=== PATIENT | male | born 1960 | race Caucasian/White ===

== ENCOUNTER → 2021-10-30 09:54 | Outpatient (CLI) | payer OTHER, SELFPAY ==
--- NOTE | ~2021-10-30 | XR_ITS ---
EXAMINATION:XR_[id number]_CR DATE: 10/30/2021 10:11 INDICATION: Left shoulder pain TECHNIQUE: AP, lateral, and odontoid views of the cervical spine are provided. COMPARISON: None FINDINGS: There is 1 mm of retrolisthesis of C3 on C4. The odontoid is intact. No fracture is identif ied. The vertebral body heights are maintained. There is mild to moderate loss of intervertebral disc space height from C2-3 through C5-6. Small degenerative osteophytes project from the anterior endpla jaxon of multiple vertebral bodies. There is mild multilevel facet and uncovertebral joint osteoarthrit is. Prevertebral soft tissues are normal. Calcified right paratracheal lymph nodes are consistent wit h old granulomatous disease. IMPRESSION: 1. Mild to moderate cervical spondylosis. Reviewed, dictated and finalized at location B.
--- NOTE | ~2021-10-30 | XR_ITS ---
XR shoulder LT min 2V 10/30/2021 10:10 Indication: Left shoulder pain Procedure: 4 views left shoulder Comparison: No prior studies Findings: Severe glenohumeral joint osteoarthritis. No acute fracture or traumatic malalignment. Visu alized lung parenchyma is unremarkable. No soft tissue abnormality. No foreign bodies. Impression: 1: Severe left glenohumeral joint osteoarthritis. Reviewed, dictated and finalized at location A. Impression: 1: Severe left glenohumeral joint osteoarthritis.
== END ==
PROVIDERS: PCP Internal Medicine; Visit Provider Internal Medicine
DX: M47.892 Other spondylosis, cervical region (principal); M19.012 Primary osteoarthritis, left shoulder
CPT/HCPCS: 72040; 73030

== ENCOUNTER 2021-12-20 06:36 | Outpatient (CLI) | payer OTHER, SELFPAY ==
--- NOTE | ~2021-12-20 | CT_ITS ---
EXAMINATION: CT shoulder LT wo con DATE: 12/20/2021 06:54 INDICATION: Left shoulder osteoarthritis for preoperative planning. TECHNIQUE: High resolution computed tomography (CT) of the left shoulder was performed without intrav enous contrast. Additional sagittal and coronal reconstructions were performed. The dose-length produ ct was 510.48 mGy-cm. COMPARISON: Radiographs dated 10/30/2021 FINDINGS: Normal alignment. No fracture. Advanced left glenohumeral osteoarthritis with remodeling and loss of bone stock along the medial and posteromedial aspect of the humeral head. Prominent subarticular cyst ic changes at the superomedial aspect of the humeral head. There are also large marginal osteophytes primarily along the inferomedial aspect of the humeral head. There is also remodeling of the glenoid with loss of bone stock at the posterior glenoid resulting in approximately 15 degrees retroversion. Small marginal osteophytes along the glenoid. There are also multiple small loose osteochondral roseline s at the superior and posterior recess of the joint space. No significant glenohumeral joint effusion . Mild acromioclavicular osteoarthritis. No asymmetric muscular atrophy of the shoulder girdle. No pa thologically enlarged lymphadenopathy at the left axilla, left hilum or visualized left side of the m ediastinum. Calcified infrahilar lymph nodes consistent with old granulomatous disease. Visualized po rtions of the left lung are clear. IMPRESSION: 1. Advanced left glenohumeral osteoarthritis. Reviewed, dictated and finalized at location A.
== END 2021-12-20 06:37 | disposition home or self-care (01) ==
LOC: ANHIMG 06:40
PROVIDERS: PCP Internal Medicine; Visit Provider Internal Medicine
DX: M19.012 Primary osteoarthritis, left shoulder (principal)
CPT/HCPCS: 73200

== ENCOUNTER 2022-01-25 12:00 | Outpatient (CLI) | payer OTHER, SELFPAY ==
--- NOTE | 2022-01-25 12:38 | ECG_ITS ---
Measurements Intervals Burns Rate: 75 P: 1 MT: 188 QRS: 13 QRSD: 118 T: 44 QT: 372 QTc: 418 Interpretive Statements SINUS RHYTHM NORMAL ELECTROCARDIOGRAM NO PREVIOUS ECG AVAILABLE FOR COMPARISON Electronically Signed On 01-25-2022 14:11:55 CDT by Trenton Viveros M.D.
[2022-01-25 12:56] LABS: Basophils Percent Auto 0.8 % (0.2-1.2); Eosinophils Absolute Auto 0.1 K/mm3 (0-0.3); Eosinophils Percent Auto 2.6 % (0-4.4); Hematocrit 41.2 % (42.0-52.0); Immature Granulocyte Absolute 0.01 K/mm3 (0.00-0.031); Immature Granulocyte Percent A 0.2 % (0-0.5); Lymphocytes Absolute Auto 1.08 K/mm3 (0.9-3.2); Lymphocytes Percent Auto 21.7 % (18.3-44.2); Mean Corpuscular Hemoglobin 30.7 pg (26-34); Mean Corpuscular Volume 90.4 fl (80-100); Mean Platelet Volume 11.2 fl (7.4-10.4); Monocytes Absolute Auto 0.4 K/mm3 (0.1-0.6); Monocytes Percent Auto 8.9 % (2.6-8.5); Neutrophils Absolute Auto 3.3 K/mm3 (1.3-6.7); Neutrophils Percent Auto 65.8 % (45.5-73.1); Platelet Count Result 186 k/mm3 (150-375); Red Blood Count 4.56 M/mm3 (4.6-6.20); Red Cell Distribution Width 13.1 % (11.5-14.5)
== END 2022-01-25 12:01 | disposition home or self-care (01) ==
LOC: ANHSURGERY 12:06
PROVIDERS: PCP Internal Medicine; Visit Provider Orthopaedic Surgery
DX: M19.012 Primary osteoarthritis, left shoulder (principal); Z01.818 Encounter for other preprocedural examination
CPT/HCPCS: 36415; 85025; 87081; 93005

== ENCOUNTER 2022-02-21 00:53 | Day surgery (SDC) | payer OTHER, SELFPAY ==
--- NOTE | 2022-01-25 11:38 | PC.NURSE ---
PRE-OP INSTRUCTIONS, PLEASE READ CAREFULLY Report to the Outpatient Waiting Room, entrance under the green pavilion located off [facility], at time _0600_ on date _02/21/22_. Planned Procedure Time: _0730_. PACK A SMALL OVERNIGHT BAG AND LEAVE IN THE CAR Time changes happen often and if your time is changed the preop area will call you the afternoon before. - You and your visitor will be asked to self-screen and do not enter if you have any COVID symptoms. - We encourage only one visitor and NO visitors under age 16 are allowed at this time. Your visitor will receive communication by the phone number that is given day of service. - The patient visitor is requested to social distance or may leave the building when not with patient due to restrictions. - A mask is required within the hospital. -VISITING HOURS 8AM-8PM Patients may have clear liquids (water, carbonated beverages, clear teas, apple juice) until 3 hours prior to surgery (0430 AM) with a maximum of 20 ounces. - No food from midnight until time of surgery Take the following medications with a SIP of water the morning of surgery: _LEVOTHYROXINE_ Medications to discontinue per DR. KELLEY - _ALEVE, IBUPROFEN 7 DAYS PRIOR TO SURGERY, Date to take last dose 02/13/22_ Medications to discontinue per ANESTHESIA - _MULTIVITAMIN 3 DAYS PRIOR TO SURGERY, Date to take last dose 02/17/22_ Please no make-up, nail english, hairspray, perfume, deodorant, or body powder the day of surgery. No jewelry (including any body piercings) or valuables the day of surgery, leave them at home. Please take a shower or bath the night before, or the morning of, surgery with an antibacterial soap. Wear comfortable, loose fitting clothing. Children are encouraged to wear pajamas. - Jewelry must be removed prior to entering the operating room. Rings and piercings that are not removed may be cut off. - The hospital will not accept responsibility for valuables. - Please leave all valuables, including medications, at home the day of surgery. If you are going home after surgery, a licensed class c truck driver must drive you home. - NO public transportation without another adult. - We recommend that an adult stay with you for 24 hours following discharge. - We also recommend that you do not drive, make important decision, drink alcoholic beverages, or take any drugs that were not prescribed by your health care provider for at least 24 hours after your discharge time. Follow any additional instructions given to you from your surgeon. If you or anyone in your household have experienced Covid symptoms in the past week, please notify your surgeon or the nurse liaison at the phone number below for possible testing. Instructions given to ____PT and asked if any additional questions and then verbalized understanding. Patient advised to call surgeon office or pre surgery nurse liaison [phone] if any additional questions.
[2022-01-25 12:21] VITALS: BP 136/82; PULSE 72; RESP 20; TEMP 36.8; O2SAT 98; BMI 26.5
--- NOTE | 2022-02-20 13:13 | WPDANESEPPF ---
Anes - Initial Pre Proc Eval Procedure: Operation Date: 02/21/22 07:30 Proposed Procedures p Left Reverse Total Shoulder Arthroplasty - Emerson Jc MD Date/Time: 02/20/22 13:13 Surgeon: Emerson Jc MD Pre Op Diagnosis: primary oa left shoulder Patient Data Age: 61 Gender: M Height: 1.85 m Weight: 91.2 kg Last Vital Signs Temp 36.8 C 01/25/22 12:21 Pulse 72 01/25/22 12:21 Resp 20 01/25/22 12:21 BP 136/82 01/25/22 12:21 Pulse Ox 98 01/25/22 12:21 O2 Del Method Room Air 01/25/22 12:21 Allergies Allergy/AdvReac Type Severity Reaction Status Date / Time animal dander Allergy Unknown THROAT Verified 01/25/22 12:15 SWELLING, HIVES, EYE IRRITATION mold Allergy Unknown DIFFICULTY Verified 01/25/22 12:15 BREATHING, ITCHY EYES Penicillins Allergy Unknown Unknown- Verified 01/25/22 12:15 A CHILD Home Medications Medication Instructions Recorded Confirmed Type levothyroxine 50 mcg tablet 50 mcg PO DAILY #90 tabs 08/27/21 01/25/22 Rx (Synthroid) ibuprofen 100 mg tablet 100 mg TID PRN Pain 01/25/22 01/25/22 History multivit,calc,mins-folic 240 1 tablet PO DAILY 01/25/22 01/25/22 History mcg-vit K1 30 mcg-lycopene 300 mcg tablet (One-A-Day Men's Complete) naproxen sodium 220 mg capsule 220 mg PO BID PRN Pain 01/25/22 01/25/22 History (Aleve) Patient hx anesthesia problems: none Family hx anesthesia problems: none Results Review: All pre-operative results and documents have been reviewed as part of the pre-operative evaluation. [facility] Past Medical History Medical History Gastro-esophageal reflux disease without esophagitis Hyperlipidemia Hypothyroidism Surgical History Surgical History History of knee surgery 1980 1990 History of shoulder surgery 2005 Family History Family History Sibling Patient's sister is in good health Family history of diabetes mellitus in first degree relative Social History Social History Smoking status: Never smoker Tobacco type: cigarettes Second hand tobacco smoke exposure: No Alcohol intake: current Alcohol use details: STATES VERY VERY RARELY - NONE IN PAST 1 1/2YR Substance use: never Substance use type: does not use Lack of Transportation: No Lack of Food: Never True Current Housing: I Have Housing Concerned About Future Housing: No Difficulty Paying Gas/Electric Bills: No Difficulty Paying for Meds: No Currently Unemployed: No Education: Bachelor's Degree Difficulty w/ Childcare or Family Care: No Living arrangements: with family Spiritual care concerns: No Anes - Eval Final PreProcedure Day of Procedure 02/20/22 13:13 Patient weight: overweight Heart: regular rate and rhythm Lungs: clear to auscultation Airway: Mallampati scale class II Neurological: alert and oriented Last oral intake: >/= 8 hours ASA classification: II Emergent: no Anesthetic plan: proceed Anesthesia type and monitoring: general ETT and standard monitoring Results Review: All pre-operative results and documents have been reviewed as part of the pre-operative evaluation. Informed Consent: The patient's anesthetic plan and its attendant risks and benefits were discussed with the patient/family/POA. Questions were solicited and answers provided to the satisfaction of the patient/family/POA.
[2022-02-21] VITALS (13 sets, daily range): BP systolic 91–128; BP diastolic 52–76; PULSE 67–87; RESP 12–18; TEMP 36.3–36.6; O2SAT 90–100
[2022-02-21] MEDS: ACETAMINOPHEN 500 MG TABLET 1000 MG PO (06:30)
--- NOTE | 2022-02-21 06:46 | WPDANESPNB ---
Anes - Peripheral Nerve Block Date/Time: 02/21/22 06:46 I have discussed with the patient/family/POA the placement of a peripheral nerve block for post-operative pain management, including associated risks, benefits, complications, and side effects. Alternative methods of post-operative analgesia were detailed. Questions were solicited and answers provided to the satisfaction of the patient/family/POA. Time-Out: A pre-procedural Time-Out was completed immediately before starting the procedure and confirmed: Patient Identification, Site, Procedure, Patient Position and the Availability of Requisite Equipment. Clinical Indications: Acute post-operative pain management requested by the operative surgeon. Nerve Block Insertion Note Anes-nerve block: interscalene left Patient position: supine Skin prep: chlorhexidine Needle: 22 gauge, stimulating, insulated echogenic needle. Needle length: 50 mm Technique: ultrasound Injectate: bupivacaine 0.5% with epi 5 mcg/ml (30cc- no epi) Observations: tolerated well Complications: none Procedure start time:: 726 Procedure end time:: 729
[2022-02-21] MEDS: LACTATED RINGERS 1,000 ML 30 ML IV CONT ×2 (07:00→10:30)
[2022-02-21] MEDS: TRANEXAMIC ACID 1,000MG/ISO100 1,000 MG/100 ML BAG 200 MG IVPB (07:16)
--- NOTE | 2022-02-21 07:19 | WPDHPUPDATE1 ---
History and Physical Update Update Date/Time: 02/21/22 07:19 History and Physical has been reviewed, including an updated exam of the patient. There are NO changes in the patient's condition. Risks, benefits, and alternatives have been discussed and questions answered. Patient agrees to proceed with procedure.
[2022-02-21] MEDS: ceFAZolin 2 GM/D5W 50 ML 2 GM/50 ML BAG IVPB ×3 (07:30→23:21)
[2022-02-21] MEDS: VANCOMYCIN HCL 1,000 MG VIAL 1000 MG TOPICAL (10:09)
--- NOTE | 2022-02-21 10:28 | W.PM.PROC2 ---
Procedure Note - Detailed Date of Procedure 02/21/22 Pre-op Diagnosis primary oa left shoulder Post-op Diagnosis Same Procedure Performed Reverse total shoulder arthroplasty, left. Surgeon Emerson Jc MD Pharmaceutical Botanist Amna Patel PA-C Anesthesia General and Regional (Interscalene block.) Findings Marked preoperative stiffness. Severe djd with humeral head collapse. Extensive osteophytes and multiple loose bodies. Posterior subluxation and 20 degrees retroversion. 3D preoperative analysis with the [employer] software. Correction with 15 degree augmented baseplate; with augment placed at 2 o'clock. Good bone quality. Due to the anatomic head deformity, a slightly varus neck cut was required to achieve 25 degrees of retroversion while avoiding the cuff insertion. Description of Procedure The patient was given an interscalene block in the preoperative area. Preoperative antibiotics were given. The patient was transferred to the operating room and a general anesthetic was administered. The beach chair position was used at 45 degrees. All bony prominences were padded. The head was carefully stabilized on the [employer] head scorer. A sterile prep and drape was performed in the usual manner with ChloraPrep. A longitudinal incision was created at the anterior shoulder just lateral to the deltopectoral interval. Hydrogen peroxide was placed on the incision and then rinsed after one minute. Careful dissection was performed to expose the interval and protect the cephalic vein. The vein was retracted medially. The upper border of the pectoralis was released. Anterior circumflex vessel branches were suture ligated. The biceps was tenodesed. A subscapularis tenotomy was performed. The inferior capsule was released, exposing the humeral head. Osteophytes were removed. Care was taken to stay on bone to protect the axillary nerve. The anatomic head cut was taken with the oscillating saw. The guide pin was placed, central drilling performed, and the broach trial inserted. The neck anteversion and inclination were carefully assessed. The cut protector was placed, and attention was turned to the glenoid. Retractors were placed. Releases were carried out for exposure. The subscapularis was mobilized, the inferior capsule and long head of triceps released, and the superior and middle glenohumeral ligaments released as well. Labral tissue was resected as needed. The sizing template was used to assess the baseplate position low on the glenoid. A guide pin was placed. Minimal reaming was used to accomplish a flat surface without violating the subchondral bone. Version was corrected according to preoperative templating. The boss was drilled, and the real component was impacted into position. Supplemental locking screws were placed centrally, superiorly, and inferiorly. The glenosphere was impacted into the taper. The proximal humerus was reamed for the inset component. The humeral components were trialed. The real humeral stem, tray, and insert were impacted into position. The shoulder was copiously irrigated periodically with pulsatile lavage. The shoulder was reduced and stability confirmed. 1 gram of Vancomycin powder was placed in the joint. The biceps tenodesis was incorporated with the pectoralis tendon repair. The deltopectoral space was reapproximated with number 1 Vicryl. The remaining tissue was closed with 0 Quill and 2-0 Quill running suture and steri-strips. A sterile silver occlusive dressing and shoulder immobilizer were placed. The patient was transferred to the recovery room. Physician retail assistant manager, Amna Patel PA-C, required for surgery; including patient positioning, draping, tissue retraction, maintaining instrument position, wound closure, and dressing placement. Implants Shoulder Innovations reverse TSA size 0 stem. +3 polyethylene insert. 15 degree augmented baseplate. 36+6 mm glenosphere. Estimated Blood Loss 150 Drains No Pathology None sent Complicatio
--- NOTE | 2022-02-21 12:10 | ADMGEN ---
This patient, Leo Dobbins, was admitted to Medical Room 257-01. Patient/family oriented to hospital policies and general routines including ID bracelet, bed and alarms, visiting hours, pain management, procedures, bathroom and other care routines, personal items, smoking policy, room service/diet, and visiting hours. Information on how to activate the Rapid Response Team has been discussed. Patient/Family are encouraged to report perceived risks to care and to ask questions if they do not understand what they are told or what they should do.
[2022-02-21] MEDS: SODIUM CHLORIDE 0.9% IV 1,000 ML 125 ML IV CONT (12:28)
[2022-02-21] MEDS: ONDANSETRON INJ 4 MG/2 ML VIAL IV PUSH (13:51)
[2022-02-21] MEDS: MELOXICAM 7.5 MG TABLET PO (17:11)
[2022-02-21] MEDS: SENNA/DOCUSATE SODIUM TABLET 2 TAB PO (17:11)
[2022-02-21] MEDS: ASPIRIN 81 MG ENTERIC TABLET PO (17:12)
[2022-02-21] MEDS: FAMOTIDINE 20 MG TABLET PO (19:57)
[2022-02-22 01:34] VITALS: BP 110/71; PULSE 100; RESP 16; TEMP 36.8; O2SAT 95
[2022-02-22] MEDS: oxyCODONE HCL (*CRX) 5 MG TAB IR PO ×2 (04:30→10:13)
[2022-02-22] MEDS: LEVOTHYROXINE SODIUM 50 MCG TABLET PO (06:01)
[2022-02-22] MEDS: ceFAZolin 2 GM/D5W 50 ML 2 GM/50 ML BAG IVPB (06:01)
[2022-02-22] MEDS: traMADol HCL (*CRX) 50 MG TABLET PO (06:06)
[2022-02-22 06:28] VITALS: BP 114/73; PULSE 86; RESP 16; TEMP 36.6; O2SAT 100
[2022-02-22 06:29] LABS: Basophils Percent Auto 0.2 % (0.2-1.2); Eosinophils Percent Auto 0.3 % (0-4.4); Hematocrit 36.3 % (42.0-52.0); Hemoglobin 12.3 g/dL (14.0-18.0); Immature Granulocyte Absolute 0.04 K/mm3 (0.00-0.031); Immature Granulocyte Percent A 0.4 % (0-0.5); Lymphocytes Absolute Auto 1.06 K/mm3 (0.9-3.2); Lymphocytes Percent Auto 11.1 % (18.3-44.2); Mean Corpuscular HGB Conc 33.9 g/dl (32-36); Mean Corpuscular Volume 88.5 fl (80-100); Mean Platelet Volume 11.3 fl (7.4-10.4); Monocytes Absolute Auto 1.2 K/mm3 (0.1-0.6); Monocytes Percent Auto 12.2 % (2.6-8.5); Neutrophils Absolute Auto 7.3 K/mm3 (1.3-6.7); Neutrophils Percent Auto 75.8 % (45.5-73.1); Platelet Count Result 169 k/mm3 (150-375); Red Cell Distribution Width 13.2 % (11.5-14.5); White Blood Count 9.6 K/mm3 (4.5-10.0)
[2022-02-22 06:35] LABS: Anion Gap 6 mmol/L (8-16); Blood Urea Nitrogen 17 mg/dL (9-20); Calcium 8.4 mg/dL (8.4-10.2); Carbon Dioxide 28 mmol/L (22-30); Chloride 100 mmol/L (98-107); Estimated CRCL calculation 77 ml/min; Estimated Glomerular Filt Rate > 60; Glucose 118 mg/dL (65-110); Potassium 4.1 mmol/L (3.4-5.0); Sodium 134 mmol/L (137-145)
--- NOTE | 2022-02-22 08:40 | PM.DS ---
DS: Admitting Diagnosis Discharge Date 02/22/22 Admitting Diagnosis Severe glenohumeral joint arthritis DS: Discharge Diagnosis Discharge Diagnosis (1) Status post reverse total arthroplasty of left shoulder: Code(s): Z96.612 - Presence of left artificial shoulder joint Status: Acute Assessment and Plan: Postop day 1: Left reverse total shoulder arthroplasty. Patient tolerated procedure well. No complications. Pain manageable with pain medication. No numbness or tingling. We had a lengthy discussion regarding postoperative wound care, limitations, expectations, and exercises. Patient shows good understanding. He has had initial physical therapy and is tolerating it well. DVT prophylaxis: 81 mg baby aspirin b.i.d. for 14 days. Pain medication: Percocet. Meloxicam. Patient has followup appointment with Dr. Jc in 3 weeks. DS: Summary Hospital Course Hospital Course: He has had initial PT and OT and is tolerating it well. No complications. Status at Discharge Functional status at discharge: independent ambulation Overall status at discharge: patient is progressing back to baseline Time Spent with Patient Time attestation: Total time spent providing and/or coordinating discharge services: Exam Narrative: Normal weight 61 y/o male. Resting comfortably in bed. Wearing sling. Dressing dry and intact with no drainage. Moderate swelling. Moderate ecchymosis. No erythema. No hematoma. Range of motion limited due to pain. Neurologic status intact. No varicosities. Distal pulses palpable. DS: Data Data Completed and Pending Labs on day of discharge: Labs from last 24 hours 02/22/22 02/22/22 05:25 05:25 WBC 9.6 RBC 4.10 L Hgb 12.3 L Hct 36.3 L MCV 88.5 MCH 30.0 MCHC 33.9 RDW 13.2 Plt Count 169 MPV 11.3 H Immature Gran % (Auto) 0.4 Neut % (Auto) 75.8 H Lymph % (Auto) 11.1 L [place] % (Auto) 12.2 H Eos % (Auto) 0.3 Baso % (Auto) 0.2 Lymph # (Auto) 1.06 [place] # (Auto) 1.2 H Eos # (Auto) 0.0 Baso # (Auto) 0.0 Abs Immat Gran (auto) 0.04 H Absolute Neuts (auto) 7.3 H Absolute Nucleated RBC 0.0 Nucleated RBC % 0.0 Sodium 134 L Potassium 4.1 Chloride 100 Carbon Dioxide 28 Anion Gap 6 L BUN 17 Creatinine 1.00 Estim Creat Clear Calc 77 Estimated GFR > 60 Glucose 118 H Calcium 8.4 Discharge Plan Discharge Patient Disposition: Home, Self-Care Discharge Instructions: See green instructions sheets Stand Alone Forms: General Discharge Instructions Follow-up/Referrals: Amna Patel PA [Physician [employer]ian [employer]] - Discharge Medications: New meloxicam 15 mg tablet 15 mg PO DAILY Qty: 30 0RF Rx Instructions: Cut in half. Take 1/2 in morning and 1/2 at night. Take with food. Stop if stomach upset. aspirin 81 mg tablet,delayed release (DR/EC) 81 mg PO BID 14 Days Qty: 28 0RF oxycodone-acetaminophen 5-325 mg tablet 1 - 2 tablet PO Q4-6H MDD 6 PRN (Reason: pain) Qty: 30 0RF Continued multivit,calc,zgg-OV-D7-lycop [One-A-Day Men's Complete] 240 mcg-30 mcg- 300 mcg Tablet 1 tablet PO DAILY levothyroxine [Synthroid] 50 mcg tablet 50 mcg PO DAILY Qty: 90 1RF Label Comments: QAM Held ibuprofen 100 mg Tablet 100 mg TID PRN (Reason: Pain) Hold Instructions: Resume on 03/15/22. Hold while taking Meloxicam. naproxen sodium [Aleve] 220 mg Capsule 220 mg PO BID PRN (Reason: Pain) Hold Instructions: Resume on 03/15/22. Hold while taking Meloxicam.
--- NOTE | 2022-02-22 08:44 | P.PNAN_ITS ---
Anes - Prog Note Post-Op Date/Time: 02/22/22 08:44 Cardiovascular status: normal Respiratory status: normal Airway patency: baseline Mental status: baseline Post-Op hydration status: normal Vital Signs: Last Vital Signs Temp 36.6 C 02/22/22 06:28 Pulse 86 02/22/22 06:28 Resp 16 02/22/22 06:28 BP 114/73 02/22/22 06:28 Pulse Ox 100 02/22/22 06:28 O2 Del Method Room Air 02/21/22 16:08 O2 Flow Rate 8 02/21/22 11:00 Pain Score (VAS): 05/17 I/O: Intake & Output 02/21/22 02/22/22 02/22/22 23:59 07:59 15:59 Intake Total 390 400 Balance 390 400 Laboratory Tests 02/22/22 05:25 02/22/22 05:25 02/22/22 02/22/22 05:25 05:25 WBC 9.6 RBC 4.10 L Hgb 12.3 L Hct 36.3 L MCV 88.5 MCH 30.0 MCHC 33.9 RDW 13.2 Plt Count 169 MPV 11.3 H Immature Gran % (Auto) 0.4 Neut % (Auto) 75.8 H Lymph % (Auto) 11.1 L [place] % (Auto) 12.2 H Eos % (Auto) 0.3 Baso % (Auto) 0.2 Lymph # (Auto) 1.06 [place] # (Auto) 1.2 H Eos # (Auto) 0.0 Baso # (Auto) 0.0 Abs Immat Gran (auto) 0.04 H Absolute Neuts (auto) 7.3 H Absolute Nucleated RBC 0.0 Nucleated RBC % 0.0 Sodium 134 L Potassium 4.1 Chloride 100 Carbon Dioxide 28 Anion Gap 6 L BUN 17 Creatinine 1.00 Estim Creat Clear Calc 77 Estimated GFR > 60 Glucose 118 H Calcium 8.4 Post-procedural complaints: none Patient Feedback: Patient satisfied with anesthetic care. Other Findings: Pt with excellent Pain relief from block, beginning to wear off around 0430
[2022-02-22] MEDS: SENNA/DOCUSATE SODIUM TABLET 2 TAB PO (09:06)
[2022-02-22] MEDS: FAMOTIDINE 20 MG TABLET PO (09:07)
[2022-02-22] MEDS: MELOXICAM 7.5 MG TABLET PO (09:07)
[2022-02-22] MEDS: ASPIRIN 81 MG ENTERIC TABLET PO (09:07)
[2022-02-22 10:35] VITALS: BP 116/71; PULSE 70; RESP 18; TEMP 36.4; O2SAT 98
== END 2022-02-22 13:54 | disposition home or self-care (01) ==
LOC: ANHSURGERY 06:00 → ANH2MED 11:51 → ANHCPC 02-22 12:13
PROVIDERS: Physician Assistant Surgical; PCP Internal Medicine; Visit Provider Orthopaedic Surgery
PROC: (CPT 23472; principal; 2022-02-21 07:30)
DX: M19.012 Primary osteoarthritis, left shoulder (principal); G89.18 Other acute postprocedural pain; E78.5 Hyperlipidemia, unspecified; E03.9 Hypothyroidism, unspecified; K21.9 Gastro-esophageal reflux disease without esophagitis
CPT/HCPCS: 23472; 64415; 36415; 80048; 85025; 86850; 86900; 86901; 87081; 93005; 97110; 97161; 97165; 97530; 97535; A4565; A9270; J0131; J0171; J0461; J0690; J1100; J1885; J2250; J2270; J2405; J2704; J2710; J2795; J3010; J3370; J7030; J7120

== ENCOUNTER 2023-03-27 07:43 | Day surgery (SDC) | payer OTHER, SELFPAY ==
[2023-02-13 08:16] VITALS: BMI 29.2
[2023-03-12 10:18] VITALS: BMI 28.5
--- NOTE | 2023-03-26 07:54 | WPDANESEPPF ---
Anes - Initial Pre Proc Eval Procedure: Operation Date: 03/27/23 09:30 Proposed Procedures p Screening Colonoscopy - Phani Perkins MD Date/Time: 03/26/23 07:54 Surgeon: Phani Perkins MD Pre Op Diagnosis: Neoplasm Screening Patient Data Age: 62 Gender: M Height: 1.85 m Weight: 98 kg Allergies Allergy/AdvReac Type Severity Reaction Status Date / Time animal dander Allergy Unknown THROAT Verified 03/12/23 10:16 SWELLING, HIVES, EYE IRRITATION mold Allergy Unknown DIFFICULTY Verified 03/12/23 10:16 BREATHING, ITCHY EYES Penicillins Allergy Unknown Unknown- Verified 03/12/23 10:16 A CHILD Home Medications Medication Instructions Recorded Confirmed Type multivit,calc,mins-folic 240 1 tablet PO DAILY 01/25/22 03/12/23 History mcg-vit K1 30 mcg-lycopene 300 mcg tablet (One-A-Day Men's Complete) Supersbeets 1 gummy PO DAILY 03/12/23 03/12/23 History levothyroxine 50 mcg tablet See Rx Instructions .Route 03/23/23 Rx .COMPLEX #90 tabs Results Review: All pre-operative results and documents have been reviewed as part of the pre-operative evaluation. [facility] Past Medical History Medical History (Updated 03/26/23 @ 07:55 by Dwight Bey DO) Asthma Gastro-esophageal reflux disease without esophagitis Hyperlipidemia Hypothyroidism Surgical History Surgical History (Updated 03/26/23 @ 07:55 by Dwight Bey DO) History of appendectomy History of knee surgery 1980 1990 History of reverse total replacement of left shoulder joint (~02/21/22) History of shoulder surgery 2005 Family History Family History Sibling Patient's sister is in good health Family history of diabetes mellitus in first degree relative Social History Social History Smoking status: Never smoker Second hand tobacco smoke exposure: No Alcohol intake: never Alcohol use details: STATES VERY VERY RARELY - NONE IN PAST 1 1/2YR Substance use: never Substance use type: does not use Lack of Transportation: No Lack of Food: Never True Current Housing: Decline to Answer Concerned About Future Housing: Decline to Answer Difficulty Paying Gas/Electric Bills: Decline to Answer Difficulty Paying for Meds: Decline to Answer Currently Unemployed: Decline to Answer Difficulty w/ Childcare or Family Care: Decline to Answer Living arrangements: with family Spiritual care concerns: No Anes - Eval Final PreProcedure Day of Procedure 03/26/23 07:54 Patient weight: overweight Heart: regular rate and rhythm Lungs: clear to auscultation Airway: Mallampati scale class II Neurological: alert and oriented Last oral intake: >/= 8 hours ASA classification: II Emergent: no Anesthetic plan: proceed Anesthesia type and monitoring: general GIVS and standard monitoring Results Review: All pre-operative results and documents have been reviewed as part of the pre-operative evaluation. Informed Consent: The patient's anesthetic plan and its attendant risks and benefits were discussed with the patient/family/POA. Questions were solicited and answers provided to the satisfaction of the patient/family/POA.
--- NOTE | 2023-03-26 14:31 | PM.HPGS ---
History of Present Illness History of Present Illness Consent: Risks, benefits, and alternatives have been discussed and questions answered. Patient agrees to proceed with procedure. Chief complaint: Neoplasm Screening Narrative: Leo Dobbins is a 62 year old male Referred for colon cancer screening. Review of Systems Review of Systems: All systems reviewed & are unremarkable except as noted in HPI and below PMFSH Past Medical History Medical History Asthma Gastro-esophageal reflux disease without esophagitis Hyperlipidemia Hypothyroidism Surgical History Surgical History History of appendectomy History of knee surgery 1980 1990 History of reverse total replacement of left shoulder joint (~02/21/22) History of shoulder surgery 2005 Family History Family History Sibling Patient's sister is in good health Family history of diabetes mellitus in first degree relative Social History Social History Smoking status: Never smoker Second hand tobacco smoke exposure: No Alcohol intake: never Alcohol use details: STATES VERY VERY RARELY - NONE IN PAST 1 1/2YR Substance use: never Substance use type: does not use Lack of Transportation: No Lack of Food: Never True Current Housing: Decline to Answer Concerned About Future Housing: Decline to Answer Difficulty Paying Gas/Electric Bills: Decline to Answer Difficulty Paying for Meds: Decline to Answer Currently Unemployed: Decline to Answer Difficulty w/ Childcare or Family Care: Decline to Answer Living arrangements: with family Spiritual care concerns: No Meds Home Medications and Allergies Home Medications Medication Instructions Recorded Confirmed Type multivit,calc,mins-folic 240 1 tablet PO DAILY 01/25/22 03/27/23 History mcg-vit K1 30 mcg-lycopene 300 mcg tablet (One-A-Day Men's Complete) Supersbeets 1 gummy PO DAILY 03/12/23 03/27/23 History levothyroxine 50 mcg tablet See Rx Instructions .Route 03/23/23 03/27/23 Rx .COMPLEX #90 tabs Allergies Allergy/AdvReac Type Severity Reaction Status Date / Time animal dander Allergy Unknown THROAT Verified 03/12/23 10:16 SWELLING, HIVES, EYE IRRITATION mold Allergy Unknown DIFFICULTY Verified 03/12/23 10:16 BREATHING, ITCHY EYES Penicillins Allergy Unknown Unknown- Verified 03/12/23 10:16 A CHILD Exam Resp: Auscultation: clear to auscultation bilaterally Cardio: Rate: regular rate Rhythm: regular rhythm GI: GI Palp: Yes Soft to palpation and No Tenderness to palpation present (GI) Assessment and Plan Assessment and plan (1) Colon cancer screening: Code(s): Z12.11 - Encounter for screening for malignant neoplasm of colon Status: Acute Assessment and Plan: Colonoscopy with possible biopsy or polypectomy or cautery or injection of substances.
[2023-03-27 08:19] VITALS: BP 131/97; PULSE 87; RESP 18; TEMP 36.7; O2SAT 96; BMI 28.3
--- NOTE | 2023-03-27 08:27 | WPDANESEPPF ---
Anes - Initial Pre Proc Eval Procedure: Operation Date: 03/27/23 09:30 Proposed Procedures p Screening Colonoscopy - Phani Perkins MD Date/Time: 03/27/23 08:27 Surgeon: Phani Perkins MD Pre Op Diagnosis: Neoplasm Screening Patient Data Age: 62 Gender: M Height: 1.85 m Weight: 97.4 kg Last Vital Signs Temp 36.7 C 03/27/23 08:19 Pulse 87 03/27/23 08:19 Resp 18 03/27/23 08:19 BP 131/97 H 03/27/23 08:19 Pulse Ox 96 03/27/23 08:19 O2 Del Method Room Air 03/27/23 08:19 Allergies Allergy/AdvReac Type Severity Reaction Status Date / Time animal dander Allergy Unknown THROAT Verified 03/12/23 10:16 SWELLING, HIVES, EYE IRRITATION mold Allergy Unknown DIFFICULTY Verified 03/12/23 10:16 BREATHING, ITCHY EYES Penicillins Allergy Unknown Unknown- Verified 03/12/23 10:16 A CHILD Home Medications Medication Instructions Recorded Confirmed Type multivit,calc,mins-folic 240 1 tablet PO DAILY 01/25/22 03/27/23 History mcg-vit K1 30 mcg-lycopene 300 mcg tablet (One-A-Day Men's Complete) Supersbeets 1 gummy PO DAILY 03/12/23 03/27/23 History levothyroxine 50 mcg tablet See Rx Instructions .Route 03/23/23 03/27/23 Rx .COMPLEX #90 tabs Patient hx anesthesia problems: none Family hx anesthesia problems: none Results Review: All pre-operative results and documents have been reviewed as part of the pre-operative evaluation. [facility] Past Medical History Medical History Asthma Gastro-esophageal reflux disease without esophagitis Hyperlipidemia Hypothyroidism Surgical History Surgical History History of appendectomy History of knee surgery 1980 1990 History of reverse total replacement of left shoulder joint (~02/21/22) History of shoulder surgery 2005 Family History Family History Sibling Patient's sister is in good health Family history of diabetes mellitus in first degree relative Social History Social History Smoking status: Never smoker Second hand tobacco smoke exposure: No Alcohol intake: never Alcohol use details: STATES VERY VERY RARELY - NONE IN PAST 1 1/2YR Substance use: never Substance use type: does not use Lack of Transportation: No Lack of Food: Never True Current Housing: Decline to Answer Concerned About Future Housing: Decline to Answer Difficulty Paying Gas/Electric Bills: Decline to Answer Difficulty Paying for Meds: Decline to Answer Currently Unemployed: Decline to Answer Difficulty w/ Childcare or Family Care: Decline to Answer Living arrangements: with family Spiritual care concerns: No Anes - Eval Final PreProcedure Day of Procedure 03/27/23 08:27 Patient weight: overweight Heart: regular rate and rhythm Lungs: clear to auscultation Airway: Mallampati scale class II Neurological: alert and oriented Last oral intake: >/= 8 hours ASA classification: II Emergent: no Anesthetic plan: proceed Anesthesia type and monitoring: general GIVS and standard monitoring Results Review: All pre-operative results and documents have been reviewed as part of the pre-operative evaluation. Informed Consent: The patient's anesthetic plan and its attendant risks and benefits were discussed with the patient/family/POA. Questions were solicited and answers provided to the satisfaction of the patient/family/POA.
[2023-03-27] MEDS: LACTATED RINGERS 1,000 ML 150 ML IV CONT (08:35)
[2023-03-27 09:28] VITALS: BP 91/71; PULSE 73; RESP 16; O2SAT 93
[2023-03-27 09:38] VITALS: BP 98/66; PULSE 70; RESP 16; O2SAT 96
[2023-03-27 09:48] VITALS: BP 107/71; PULSE 87; RESP 16; O2SAT 96
--- NOTE | 2023-03-27 09:51 | WPDANESPN ---
Anes - Prog Note Post-Op Date/Time: 03/27/23 09:51 Cardiovascular status: normal Respiratory status: normal Airway patency: baseline Mental status: baseline Post-Op hydration status: normal Vital Signs: Last Vital Signs Temp 36.7 C 03/27/23 08:19 Pulse 87 03/27/23 09:48 Resp 16 03/27/23 09:48 BP 107/71 03/27/23 09:48 Pulse Ox 96 03/27/23 09:48 O2 Del Method Room Air 03/27/23 09:48 Pain Score (VAS): 0 I/O: Intake & Output 03/26/23 03/27/23 03/27/23 23:59 07:59 15:59 Intake Total 400 Balance 400 Patient Feedback: Patient satisfied with anesthetic care.
[2023-03-27 09:58] VITALS: BP 121/80; PULSE 80; RESP 16; O2SAT 100
== END 2023-03-27 10:06 | disposition home or self-care (01) ==
PROVIDERS: PCP Internal Medicine; Visit Provider Internal Medicine Gastroenterology
PROC: 0DJD8ZZ Inspection of Lower Intestinal Tract, Via Natural or Artificial Opening Endoscopic (ICD-10-PCS; CPT 45378; principal; 2023-03-27 09:30)
DX: Z12.11 Encounter for screening for malignant neoplasm of colon (principal)
CPT/HCPCS: 45378

== ENCOUNTER 2023-07-29 05:48 | Day surgery (SDC) | payer OTHER, SELFPAY ==
[2023-07-23 13:08] VITALS: BMI 29.2
[2023-07-23 13:21] VITALS: BMI 27.8
--- NOTE | 2023-07-28 12:39 | WPDANESEPPF ---
Anes - Initial Pre Proc Eval Procedure: Operation Date: 07/29/23 07:30 Proposed Procedures p Esophagogastroduodenoscopy - Phani Perkins MD Date/Time: 07/28/23 12:39 Surgeon: Phani Perkins MD Pre Op Diagnosis: GERD without esophagitis Patient Data Age: 62 Gender: M Height: 1.85 m Weight: 95.5 kg Allergies Allergy/AdvReac Type Severity Reaction Status Date / Time animal dander Allergy Unknown THROAT Verified 07/29/23 06:12 SWELLING, HIVES, EYE IRRITATION mold Allergy Unknown DIFFICULTY Verified 07/29/23 06:12 BREATHING, ITCHY EYES Penicillins Allergy Unknown Unknown- Verified 07/29/23 06:12 A CHILD Home Medications Medication Instructions Recorded Confirmed Type levothyroxine 50 mcg tablet 50 mcg PO DAILY 07/23/23 07/29/23 History Patient hx anesthesia problems: none Family hx anesthesia problems: none Results Review: All pre-operative results and documents have been reviewed as part of the pre-operative evaluation. [facility] Past Medical History Medical History Asthma Gastro-esophageal reflux disease without esophagitis Hyperlipidemia Hypothyroidism Surgical History Surgical History History of appendectomy History of knee surgery 1980 1990 History of reverse total replacement of left shoulder joint (~02/21/22) History of shoulder surgery 2005 Family History Family History Sibling Patient's sister is in good health Family history of diabetes mellitus in first degree relative Social History Social History Smoking status: Never smoker Second hand tobacco smoke exposure: No Alcohol intake: never Alcohol use details: STATES VERY VERY RARELY - NONE IN PAST 1 1/2YR Substance use: never Substance use type: does not use Lack of Transportation: No Lack of Food: Never True Current Housing: Decline to Answer Concerned About Future Housing: Decline to Answer Difficulty Paying Gas/Electric Bills: Decline to Answer Difficulty Paying for Meds: Decline to Answer Currently Unemployed: Decline to Answer Difficulty w/ Childcare or Family Care: Decline to Answer Living arrangements: with family Spiritual care concerns: No Anes - Eval Final PreProcedure Day of Procedure 07/28/23 12:39 Patient weight: overweight Heart: regular rate and rhythm Lungs: clear to auscultation Airway: Mallampati scale class II Neurological: alert and oriented Last oral intake: >/= 8 hours ASA classification: II Emergent: no Anesthetic plan: proceed Anesthesia type and monitoring: general GIVS and standard monitoring Results Review: All pre-operative results and documents have been reviewed as part of the pre-operative evaluation. Informed Consent: The patient's anesthetic plan and its attendant risks and benefits were discussed with the patient/family/POA. Questions were solicited and answers provided to the satisfaction of the patient/family/POA.
--- NOTE | 2023-07-28 13:53 | PM.HPGS ---
History of Present Illness History of Present Illness Consent: Risks, benefits, and alternatives have been discussed and questions answered. Patient agrees to proceed with procedure. Chief complaint: GERD without esophagitis Narrative: Leo Dobbins is a 62 year old male with gastroesophageal reflux symptoms. He has previously been tried on PPIs, Because it made him feel sick. Symptoms are atypical in that he feels at 1st the distended in the upper abdomen but resulting in excessive burping. This began a few months ago. He does not use CPAP machine. He has not drink through straws. Past 3 weeks he has been living on solids, rice, and other bland foods. He has lost about 13 lb. Review of Systems Review of Systems: All systems reviewed & are unremarkable except as noted in HPI and below PMFSH Past Medical History Medical History Asthma Gastro-esophageal reflux disease without esophagitis Hyperlipidemia Hypothyroidism Surgical History Surgical History History of appendectomy History of knee surgery 1980 1990 History of reverse total replacement of left shoulder joint (~02/21/22) History of shoulder surgery 2005 Family History Family History Sibling Patient's sister is in good health Family history of diabetes mellitus in first degree relative Social History Social History Smoking status: Never smoker Second hand tobacco smoke exposure: No Alcohol intake: never Alcohol use details: STATES VERY VERY RARELY - NONE IN PAST 1 1/2YR Substance use: never Substance use type: does not use Lack of Transportation: No Lack of Food: Never True Current Housing: Decline to Answer Concerned About Future Housing: Decline to Answer Difficulty Paying Gas/Electric Bills: Decline to Answer Difficulty Paying for Meds: Decline to Answer Currently Unemployed: Decline to Answer Difficulty w/ Childcare or Family Care: Decline to Answer Living arrangements: with family Spiritual care concerns: No Meds Home Medications and Allergies Home Medications Medication Instructions Recorded Confirmed Type levothyroxine 50 mcg tablet 50 mcg PO DAILY 07/23/23 07/29/23 History Allergies Allergy/AdvReac Type Severity Reaction Status Date / Time animal dander Allergy Unknown THROAT Verified 07/29/23 06:12 SWELLING, HIVES, EYE IRRITATION mold Allergy Unknown DIFFICULTY Verified 07/29/23 06:12 BREATHING, ITCHY EYES Penicillins Allergy Unknown Unknown- Verified 07/29/23 06:12 A CHILD Exam Const: General: alert Orientation/consciousness: patient oriented x3 Resp: Auscultation: clear to auscultation bilaterally Cardio: Rhythm: regular rhythm GI: GI Palp: Yes Soft to palpation and No Tenderness to palpation present (GI) Neuro: General: patient oriented x3 Assessment and Plan Assessment and plan (1) Gastro-esophageal reflux disease without esophagitis: Code(s): K21.9 - Gastro-esophageal reflux disease without esophagitis Status: Acute Assessment and Plan: EGD with possible biopsy or dilatation or cautery.
[2023-07-29 06:18] VITALS: BP 107/84; PULSE 90; RESP 18; TEMP 36.2; O2SAT 98; BMI 27.8
[2023-07-29] MEDS: LACTATED RINGERS 1,000 ML 150 ML IV CONT (06:30)
[2023-07-29 06:55] VITALS: BP 102/75; PULSE 66; RESP 16; O2SAT 96
[2023-07-29 07:34] VITALS: BP 101/81; PULSE 72; RESP 15; O2SAT 97
[2023-07-29 07:45] VITALS: BP 92/63; PULSE 69; RESP 16; O2SAT 98
--- NOTE | 2023-07-29 12:16 | WPDANESPN ---
Anes - Prog Note Post-Op Date/Time: 07/29/23 12:16 Cardiovascular status: normal Respiratory status: normal Airway patency: baseline Mental status: baseline Post-Op hydration status: normal Vital Signs: Last Vital Signs Temp 36.2 C L 07/29/23 06:18 Pulse 69 07/29/23 07:45 Resp 16 07/29/23 07:45 BP 92/63 L 07/29/23 07:45 Pulse Ox 98 07/29/23 07:45 O2 Del Method Room Air 07/29/23 07:45 Pain Score (VAS): 0 I/O: Intake & Output 07/28/23 07/29/23 07/29/23 23:59 07:59 15:59 Intake Total 0 Balance 0 Post-procedural complaints: none Patient Feedback: Patient satisfied with anesthetic care. Other Findings: Patient vital signs back to baseline. Patient denies nausea and vomiting. Patient's pain under control. Patient OK for discharge.
== END 2023-07-29 08:09 | disposition home or self-care (01) ==
PROVIDERS: PCP Internal Medicine; Visit Provider Internal Medicine Gastroenterology
PROC: 0DJ08ZZ Inspection of Upper Intestinal Tract, Via Natural or Artificial Opening Endoscopic (ICD-10-PCS; CPT 43235; principal; 2023-07-29 07:30)
DX: K21.00 Gastro-esophageal reflux disease with esophagitis, without bleeding (principal); K29.80 Duodenitis without bleeding; R10.13 Epigastric pain
CPT/HCPCS: 43239

== ENCOUNTER 2023-07-29 07:00 | Outpatient (NON) | payer OTHER, SELFPAY | END 2023-07-29 07:01 | disposition home or self-care (01) | PROVIDERS: PCP Internal Medicine; Visit Provider Internal Medicine Gastroenterology | DX: K21.9 Gastro-esophageal reflux disease without esophagitis (principal) | CPT/HCPCS: 88305 ==

== ENCOUNTER 2023-08-21 08:01 | Outpatient (CLI) | payer OTHER, SELFPAY ==
--- NOTE | ~2023-08-21 | XR_ITS ---
Cervical Spine: AP, lateral, open-mouth views Clinical History: Numbness Findings: The normal lordotic curve is maintained. No fracture seen. There is minimal grade 1 retroli sthesis of C3 over C4. There is moderate degenerative disc narrowing throughout the cervical spine. T here is mild facet arthropathy. Pre-vertebral soft tissues are unremarkable. Impression: [id number]-[id number] degenerative spondylosis, as above. Minimal grade 1 retrolisthesis of C3 over C4. Reviewed, dictated and finalized at location M. Impression: Ausu-nc-[id number] degenerative spondylosis, as above. Minimal grade 1 retrolisthesis of C3 over C4.
--- NOTE | ~2023-08-21 | XR_ITS ---
EXAMINATION: [id number] DATE: 08/21/2023 08:38 INDICATION: Right posterior rib pain. TECHNIQUE: A frontal view of the chest, 2 views of the right ribs on 3 radiographs, and 2 views of th e left ribs on 3 radiographs were obtained. COMPARISON: None. FINDINGS: There is mild atelectasis in left lower lung zone. No pleural effusion or pneumothorax. The heart size is normal. Calcified hilar and mediastinal lymph nodes are consistent with old granulomat ous disease. There is a total left shoulder arthroplasty. There are old healed fractures of left nesha nth and ninth ribs. IMPRESSION: 1. No acute rib fracture. Reviewed, dictated and finalized at location E. IMPRESSION: 1. No acute rib fracture.
--- NOTE | ~2023-08-21 | XR_ITS ---
Thoracic spine: Clinical Indication: Neck pain, numbness AP and lateral views were performed. No fracture is seen. There is normal alignment of the vertebrae. The intervertebral disc spaces appe ar normal. Paravertebral soft tissues appear normal. Calcified mediastinal lymph nodes are present. Impression: No significant abnormalities noted. Reviewed, dictated and finalized at [facility]. Impression: No significant abnormalities noted.
== END 2023-08-21 08:02 | disposition home or self-care (01) ==
PROVIDERS: PCP Internal Medicine; Visit Provider Nurse Practitioner
DX: M47.892 Other spondylosis, cervical region (principal); M43.12 Spondylolisthesis, cervical region
CPT/HCPCS: 71111; 72040; 72072

== ENCOUNTER 2023-09-02 08:34 | Outpatient (CLI) | payer OTHER, SELFPAY ==
--- NOTE | ~2023-09-02 | US_ITS ---
EXAMINATION: US abdomen limited DATE: 09/02/2023 09:16 INDICATION: Epigastric abdominal pain. Nausea. TECHNIQUE: Multiple grayscale and Doppler ultrasound images of the abdomen were obtained. COMPARISON: Abdomen ultrasound 04/10/2015 FINDINGS: The visualized portions of the head, body, and tail of the pancreas are normal. Calcificati ons in the liver are consistent with old granulomatous disease. There is normal flow in main portal v ein. The gallbladder is normal in size. No gallstones or gallbladder wall thickening. There is no son ographic Bocanegra's sign. The common duct is normal and measures 4 mm. IMPRESSION: 1. No etiology for the patient's symptoms. Reviewed, dictated and finalized at location A.
== END 2023-09-02 08:35 | disposition home or self-care (01) ==
PROVIDERS: PCP Internal Medicine; Visit Provider Nurse Practitioner
DX: R10.13 Epigastric pain (principal); R11.0 Nausea
CPT/HCPCS: 76705

== ENCOUNTER 2023-09-10 07:22 | Outpatient (CLI) | payer OTHER, SELFPAY ==
--- NOTE | ~2023-09-10 | NM_ITS ---
EXAMINATION: NM hepatobiliary wo pharm DATE: 09/10/2023 09:54 INDICATION: Nausea. COMPARISON: None. TECHNIQUE: 5.2 mCi Tc-99m mebrofenin (Choletec) was administered intravenously. Scintigraphic images of the abdomen were obtained for one hour. Then, the patient drank 8 oz Ensure, and imaging was cont inued for 60 minutes. FINDINGS: There is normal clearance of radiotracer from the blood pool. There is homogeneous tracer u ptake by the liver. Activity progresses to the bowel and gallbladder. Gallbladder ejection fraction (GBEF) was 15%. Note that with this technique, normal GBEF >= 33%. IMPRESSION: 1. Low gallbladder ejection fraction, consistent with gallbladder dysfunction and/or chronic cholecy stitis. Reviewed, dictated and finalized at location A. IMPRESSION: 1. Low gallbladder ejection fraction, consistent with gallbladder dysfunction and/or chronic cholecystitis.
== END 2023-09-10 07:23 | disposition home or self-care (01) ==
PROVIDERS: PCP Internal Medicine; Visit Provider Nurse Practitioner
DX: R93.2 Abnormal findings on diagnostic imaging of liver and biliary tract (principal)
CPT/HCPCS: 78226; A9537

== ENCOUNTER 2023-09-19 06:51 | Outpatient (CLI) | payer OTHER, SELFPAY ==
[2023-09-19 08:02] LABS: Alanine Aminotransferase 21 U/L (6-50); Albumin Level 4.3 g/dL (3.5-5.1); Alkaline Phosphatase 100 U/L (38-126); Amylase 68 U/L (30-110); Aspartate Amino Transferase 24 U/L (17-59); Bilirubin,Total 0.5 mg/dL (0.2-1.3); Lipase 41 U/L (23-300)
== END 2023-09-19 06:52 | disposition home or self-care (01) ==
LOC: ANHLAB 06:52
PROVIDERS: PCP Internal Medicine; Visit Provider Surgery
DX: Z01.818 Encounter for other preprocedural examination (principal); K81.1 Chronic cholecystitis
CPT/HCPCS: 36415; 80076; 82150; 83690

== ENCOUNTER 2023-09-22 01:27 | Day surgery (SDC) | payer OTHER, SELFPAY ==
--- NOTE | 2023-09-18 15:50 | PC.NURSE ---
Report to the Outpatient Waiting Room, entrance under the green pavilion located off [facility], at time 1000 on date 09/22/23. Planned Procedure Time: 1200. Time changes happen often and if your time is changed the preop area will call you the afternoon before. - You and your visitor will be asked to self-screen and do not enter if you have any COVID symptoms. - A mask is optional within the hospital at this time. Patients may have clear liquids (water, carbonated beverages, clear teas, apple juice) until 3 hours prior to surgery with a maximum of 20 ounces. 0900 - No food from midnight until time of surgery - Infants may have breast milk until 4 hours before surgery, formula 6 hours prior to surgery. - Children will be allowed to drink immediately following surgery. If applicable, please bring a bottle or sippy cup to assist with drinking. Juice, water, soda, and popsicles are readily available. For infants on formula, please bring formula the day of surgery. Pacifiers are allowed. Take the following medications with a SIP of water the morning of surgery: Levothyroxine DO NOT STOP ANY OF YOUR OTHER PRESCRIPTION MEDICATIONS PRIOR TO SURGERY ?EXCEPT THE FOLLOWING Medications to discontinue per physician Vitamins- Stop 3 days prior to surgery, Protonix- Do not take the morning of surgery Please no make-up, nail belarusian, hairspray, perfume, deodorant, or body powder the day of surgery. No jewelry (including any body piercings) or valuables the day of surgery, leave them at home. Please take a shower or bath the night before, or the morning of, surgery with an antibacterial soap. Wear comfortable, loose fitting clothing. Children are encouraged to wear pajamas. - Jewelry must be removed prior to entering the operating room. Rings and piercings that are not removed may be cut off. - The hospital will not accept responsibility for valuables. - Please leave all valuables, including medications, at home the day of surgery. If you are going home after surgery, a licensed national flatbed truck driver must drive you home. - NO public transportation without another adult if you receive anesthesia. - We recommend that an adult stay with you for 24 hours following discharge. - We also recommend that you do not drive, make important decision, drink alcoholic beverages, or take any drugs that were not prescribed by your health care provider for at least 24 hours after your discharge time. For Pediatric surgeries, we recommend two adults accompany the child home. Follow any additional instructions given to you from your surgeon. If you or anyone in your household have experienced Covid symptoms in the past week, please notify your surgeon or the nurse liaison at the phone number below for possible testing. Telephone instructions given to Patient- Leo Dobbins and asked if any additional questions and then verbalized understanding. Patient advised to call surgeon office or pre surgery nurse liaison [phone] if any additional questions.
[2023-09-18 15:59] VITALS: BMI 26.4
[2023-09-22] VITALS (9 sets, daily range): BP systolic 112–157; BP diastolic 73–89; PULSE 68–88; RESP 7–19; TEMP 36.3–36.5; O2SAT 99–100
--- NOTE | 2023-09-22 10:51 | WPDANESEPPF ---
Anes - Initial Pre Proc Eval Procedure: Operation Date: 09/22/23 12:00 Proposed Procedures p Laparoscopic Cholecystectomy, Possible Open - Anand Michael MD Date/Time: 09/22/23 10:51 Surgeon: Anand Michael MD Pre Op Diagnosis: Biliary Colic Patient Data Age: 63 Gender: M Height: 1.85 m Weight: 90.9 kg Allergies Allergy/AdvReac Type Severity Reaction Status Date / Time animal dander Allergy Unknown THROAT Verified 09/18/23 15:42 SWELLING, HIVES, EYE IRRITATION mold Allergy Unknown DIFFICULTY Verified 09/18/23 15:42 BREATHING, ITCHY EYES Penicillins Allergy Unknown Unknown- Verified 09/18/23 15:42 A CHILD Home Medications Medication Instructions Recorded Confirmed Type levothyroxine 50 mcg tablet 50 mcg PO DAILY 07/23/23 09/18/23 History pantoprazole 40 mg tablet,delayed 40 mg PO BID #60 tabs 09/02/23 09/18/23 Rx release vzmckvpt-ife-cpynn 120 mcg-lutein 1 tablet PO DAILY 09/18/23 09/18/23 History 150 mcg-herb 50 mg chewable tablet (Alive Men's 50 Plus Multivitamin) Patient hx anesthesia problems: none Family hx anesthesia problems: none Results Review: All pre-operative results and documents have been reviewed as part of the pre-operative evaluation. [facility] Past Medical History Medical History Asthma Gastro-esophageal reflux disease without esophagitis Hyperlipidemia Hypothyroidism Surgical History Surgical History History of appendectomy History of knee surgery 1980 1990 History of reverse total replacement of left shoulder joint (~02/21/22) History of shoulder surgery 2005 Family History Family History Sibling Patient's sister is in good health Family history of diabetes mellitus in first degree relative Social History Social History Smoking status: Never smoker Second hand tobacco smoke exposure: No Alcohol intake: never Alcohol use details: STATES VERY VERY RARELY - NONE IN PAST 1 1/2YR Substance use: never Substance use type: does not use Lack of Transportation: No Lack of Food: Never True Current Housing: Decline to Answer Concerned About Future Housing: Decline to Answer Difficulty Paying Gas/Electric Bills: Decline to Answer Difficulty Paying for Meds: Decline to Answer Currently Unemployed: Decline to Answer Difficulty w/ Childcare or Family Care: Decline to Answer Living arrangements: with family Spiritual care concerns: No Anes - Eval Final PreProcedure Day of Procedure 09/22/23 10:51 Patient weight: overweight Heart: regular rate and rhythm Lungs: clear to auscultation Airway: Mallampati scale Neurological: alert and oriented Last oral intake: >/= 8 hours ASA classification: II Emergent: no Anesthetic plan: proceed Anesthesia type and monitoring: general ETT and standard monitoring Results Review: All pre-operative results and documents have been reviewed as part of the pre-operative evaluation. Hypothyroidism, denies hyperlipidemia. Pt active working around house, outside, no cp or sob. Informed Consent: The patient's anesthetic plan and its attendant risks and benefits were discussed with the patient/family/POA. Questions were solicited and answers provided to the satisfaction of the patient/family/POA.
[2023-09-22] MEDS: LACTATED RINGERS 1,000 ML 30 ML IV CONT ×2 (11:20→14:50)
[2023-09-22] MEDS: ACETAMINOPHEN 500 MG TABLET 1000 MG PO (12:24)
[2023-09-22] MEDS: KETOROLAC 15 MG/ML VIAL (*BKC) IV PUSH ×2 (12:26→14:25)
--- NOTE | 2023-09-22 13:17 | WPDHPUPDATE1 ---
History and Physical Update Update Date/Time: 09/22/23 13:17 History and Physical has been reviewed, including an updated exam of the patient. There are NO changes in the patient's condition. Risks, benefits, and alternatives have been discussed and questions answered. Patient agrees to proceed with procedure.
[2023-09-22] MEDS: ceFAZolin 2 GM/D5W 50 ML 2 GM/50 ML BAG IVPB (13:49)
[2023-09-22] MEDS: LIDOCAINE/EPINEPHRINE 0.5%/1:200,000 50 ML VIAL 30 ML INFILTRATE (14:11)
[2023-09-22] MEDS: BUPivacaine HCL 0.5% PF 30 ML VIAL INFILTRATE (14:12)
--- NOTE | 2023-09-22 14:42 | W.PM.PROC2 ---
Procedure Note - Detailed Date of Procedure 09/22/23 Pre-op Diagnosis Biliary Colic due to gallbladder dysfunction Post-op Diagnosis Same Procedure Performed Laparoscopic cholecystectomy Surgeon Anand Michael MD Anesthesia General Indications Patient is a 63-year-old gentleman who presented with complaints of epigastric right upper abdominal pain associated with nausea and abdominal bloating after eating. Imaging showed no gallstones. He had a trial of proton pump inhibitors which did not resolve his symptoms. He then had a HIDA scan performed which showed a low ejection fraction of gallbladder 15%. The ingestion of the insure recreated all of his symptoms during the HIDA scan. He presents now for an elective laparoscopic cholecystectomy due to his biliary colic which is likely due to gallbladder dysfunction. Findings Gallbladder appeared to be normal in appearance with no thickening of the gallbladder wall. No gallstones were found. Description of Procedure After informed consent was obtained patient brought to the operating room was placed supine position and general endotracheal anesthesia was administered. The abdomen was then prepped and draped usual sterile fashion. Time-out was then performed correctly identifying the patient as well as procedure to be performed. He was given perioperative IV antibiotics. I then entered the abdomen left upper quadrant utilizing a 5mm Optiview port. Once inside the abdomen insufflated to adequate pneumoperitoneum of 15mmHg of CO2. Additional trocar ports then placed in a periumbilical position as was epigastric and right subcostal positions. The gallbladder was easily visualized in the right upper quadrant. It is mildly distended but had no gallbladder wall thickening or adhesions the gallbladder. I held the gallbladder at the dome with laparoscopic grasper and elevated over the right half of the liver towards his right shoulder. A 2nd grasper was then used to hold the gallbladder at the infundibulum. I then proceeded to strip down the visceral peritoneum off of the infundibular gallbladder identified the cystic duct. Cystic duct was then dissected out circumferentially. A similar fashion the cystic artery which was actually lateral to the cystic duct was dissected out circumferentially and clipped and divided as well. The gallbladder was then resected off the liver electrocautery. Once the gallbladder was free from the liver it was placed into an Endo-Catch bag and brought out through the epigastric port site. The gallbladder was palpated had no stones were then. Gallbladder sent to pathology for examination. I then irrigated out the right upper quadrant of the abdomen in the gallbladder fossa with copious amounts sterile saline solution. Hemostasis was good. No evidence of bile leak was noted. I then aspirated the fluid from the right upper quadrant the abdomen from the pelvis. I then removed the trocar ports under visualization all port sites appeared hemostatic. I then allowed the abdomen to decompress. I then irrigated out the port sites sterile saline solution. The epigastric 10mm trocar port fascial defect was then closed utilizing 0 Vicryl suture the fascial level. The skin edges non the port sites were approximated lies in a running subcuticular 4 Monocryl suture. Incisions were then cleaned and skin glue was applied. The patient tolerated the procedure well no complications. All sponges, needles, and instrument counts were correct at the end procedure. EBL was _10__cc. The patient was awakened and taken to recovery in stable and satisfactory condition. Implants None Estimated Blood Loss 10 Drains No Packing No Pathology Yes (Gallbladder to pathology) Complications No immediate complications Condition Stable Disposition PACU [facility] Billing Surgery - Charge Forward: Surgery Billing
[2023-09-22] MEDS: ONDANSETRON INJ 4 MG/2 ML VIAL IV PUSH (14:58)
[2023-09-22] MEDS: diphenhydrAMINE HCl INJ 50 MG/ML VIAL 12.5 MG IV PUSH (15:15)
[2023-09-22] MEDS: CALCIUM CARBONATE (TUMS) 500 MG (200 MG ELEMENTAL) 400 MG PO (16:36)
[2023-09-22] MEDS: oxyCODONE HCL (*CRX) 5 MG TAB IR PO (17:01)
== END 2023-09-22 17:17 | disposition home or self-care (01) ==
PROVIDERS: PCP Internal Medicine; Visit Provider Surgery
PROC: 0FT44ZZ Resection of Gallbladder, Percutaneous Endoscopic Approach (ICD-10-PCS; CPT 47562; principal; 2023-09-22 12:00)
DX: K81.1 Chronic cholecystitis (principal); E03.9 Hypothyroidism, unspecified; K21.9 Gastro-esophageal reflux disease without esophagitis
CPT/HCPCS: 47562; 36415; 80076; 82150; 83690; 88304; A9270; J0690; J1200; J1885; J2250; J2405; J3010; J7120

== ENCOUNTER 2023-10-30 16:32 | Outpatient (CLI) | payer OTHER, SELFPAY ==
--- NOTE | ~2023-10-30 | XR_ITS ---
XR hand RT min 3V DATE: 10/30/2023 16:52 INDICATION: Chronic pain TECHNIQUE: 3 views COMPARISON: None FINDINGS: No fracture, dislocation, periosteal reaction or bone destruction, erosive change or chondr ocalcinosis. IMPRESSION: No significant abnormality Reviewed, dictated and finalized at [facility]. IMPRESSION: No significant abnormality
--- NOTE | ~2023-10-30 | XR_ITS ---
XR_[id number]_CR DATE: 10/30/2023 16:52 INDICATION: Neck pain TECHNIQUE: AP, lateral, open-mouth views COMPARISON: 08/21/2023 cervical spine FINDINGS: C1 and C2 are normally aligned and the odontoid process is intact. No fracture or dislocati on or locked facet or prevertebral soft tissue swelling. Moderate degenerative disc disease is again noted throughout the cervical spine, most prominent at C5 -6. Slight retrolisthesis at C3-4 secondary to the degenerative disc disease is again noted. IMPRESSION: Moderate cervical spondylosis; no significant change since 08/21/2023 Reviewed, dictated and finalized at [facility] Reviewed, dictated and finalized at [facility].
--- NOTE | ~2023-10-30 | XR_ITS ---
XR hand LT min 3V DATE: 10/30/2023 16:52 INDICATION: Pain TECHNIQUE: 3 views COMPARISON: None FINDINGS: No recent fracture, dislocation, periosteal reaction or bone destruction, erosive change or chondrocalcinosis. IMPRESSION: No acute abnormality Reviewed, dictated and finalized at [facility]. IMPRESSION: No acute abnormality
== END 2023-10-30 16:33 | disposition home or self-care (01) ==
LOC: ANHIMG 16:33
PROVIDERS: PCP Internal Medicine; Visit Provider Internal Medicine
DX: M47.892 Other spondylosis, cervical region (principal); M79.641 Pain in right hand; M79.642 Pain in left hand
CPT/HCPCS: 72040; 73130

== ENCOUNTER 2024-01-08 07:21 | Outpatient (CLI) | payer OTHER, SELFPAY ==
--- NOTE | ~2024-01-08 | XR_ITS ---
XR knee LT min 4V Ordering provider: Emerson Jc MD History: . M17.12 - Unilateral primary osteoarthritis, left knee . Comparison: November 23, 2020 FINDINGS: BONES: No acute fracture or dislocation. JOINT SPACES: Slight narrowing of the medial and lateral compartments SOFT TISSUES: Normal. IMPRESSION: No acute osseous abnormality left knee. Slight narrowing of the medial and lateral compartments may indicate mild osteoarthritic Reviewed, dictated and finalized at [facility] IMPRESSION: No acute osseous abnormality left knee. Slight narrowing of the medial and lateral compartments may indicate mild osteo arthritic
== END 2024-01-08 07:22 | disposition home or self-care (01) ==
PROVIDERS: PCP Internal Medicine; Visit Provider Orthopaedic Surgery
DX: M17.12 Unilateral primary osteoarthritis, left knee (principal)
CPT/HCPCS: 73564